=== PATIENT | female | born 1930 | race Caucasian/White ===

== ENCOUNTER → 2016-07-16 | Outpatient (REF) | payer MEDICARE, BC, OTHER ==
[~2016-07-16] MED LIST: BIMA01SOL OU; GLIP10TA6 PO; METF1000 PO; RAMI10CA PO
[2016-07-16 13:42] LABS: PERCENT SATURATION 14.8 % (13.2-37.4)
== END ==
LOC: M LAB REF 12:35
PROVIDERS: ATTEND Internal Medicine
DX: D50.9 Iron deficiency anemia, unspecified (principal)

== ENCOUNTER → 2016-11-07 | Outpatient (REF) | payer MEDICARE, BC, OTHER ==
[2016-11-07 13:44] LABS: TOTAL PROTEIN 7.1 GM/DL (6.4-8.2)
[2016-11-08 13:54] LABS: ALBUMIN 3.98 GM/DL (3.29-5.55); GAMMA GLOBULIN % 11.3 % (11.1-18.8)
== END ==
LOC: M LAB REF 13:03
PROVIDERS: ATTEND Internal Medicine
DX: D47.2 Monoclonal gammopathy (principal)

== ENCOUNTER → 2017-10-23 | Outpatient (REF) | payer MEDICARE, OTHER ==
[2017-10-23 13:40] LABS: IMMUNOGLOBULIN A 80.4 MG/DL (70-400); IMMUNOGLOBULIN G 663 MG/DL (681-1648); IMMUNOGLOBULIN M 51.7 MG/DL (40-230); TOTAL PROTEIN 6.8 GM/DL (6.4-8.2)
[2017-10-24 11:07] LABS: ALBUMIN % 56.7 % (55.8-66.1); ALPHA-1-GLOBULIN % 4.9 % (2.9-4.9); ALPHA-2-GLOBULINS % 15.2 % (7.1-11.8); BETA-1-GLOBULINS % 7.7 % (4.7-7.2)
[2017-10-24 11:08] LABS: ALBUMIN 3.86 GM/DL (3.29-5.55); ALPHA-1-GLOBULINS 0.33 GM/DL (0.17-0.41); ALPHA-2-GLOBULINS 1.03 GM/DL (0.42-0.99); BETA-1-GLOBULINS 0.52 GM/DL (0.28-0.60); BETA-2-GLOBULINS 0.34 GM/DL (0.19-0.55); GAMMA GLOBULIN % 10.5 % (11.1-18.8); GAMMA GLOBULINS 0.71 GM/DL (0.65-1.58)
== END ==
LOC: M LAB REF 12:34
DX: D47.2 Monoclonal gammopathy (principal)
CPT/HCPCS: 84165

== ENCOUNTER → 2018-03-07 | Outpatient (REF) | payer MEDICARE, OTHER ==
[2018-03-07 14:14] LABS: IRON (FE) 40 UG/DL (50-170); PERCENT SATURATION 8.7 % (13.2-45.0); TOTAL IRON BINDING CAPACITY 461 UG/DL (250-450)
== END ==
LOC: M LAB REF 13:33
DX: D50.9 Iron deficiency anemia, unspecified (principal)
CPT/HCPCS: 83550

== ENCOUNTER → 2018-07-01 | Outpatient (REF) | payer MEDICARE, OTHER ==
[~2018-07-01] MED LIST changes: +ACET30TAB PO; +ASPI81TA85 PO; +COMB0.2S OP; +DORZ2SOL5 OP; +IBUP-1022 PO; -METF1000 PO; +METF10004 PO; +PRAV40TA2 PO; -RAMI10CA PO; +RAMI1CAP26 PO; +VITA100067 PO
[2018-07-01 13:10] LABS: IMMUNOGLOBULIN G 681 MG/DL (681-1648); IMMUNOGLOBULIN M 71.4 MG/DL (40-230); TOTAL PROTEIN 6.8 GM/DL (6.4-8.2)
[2018-07-03 13:49] LABS: ALBUMIN 3.86 GM/DL (3.29-5.55); ALBUMIN % 56.7 % (55.8-66.1); ALPHA-1-GLOBULIN % 4.7 % (2.9-4.9); ALPHA-1-GLOBULINS 0.32 GM/DL (0.17-0.41); ALPHA-2-GLOBULINS 1.01 GM/DL (0.42-0.99); ALPHA-2-GLOBULINS % 14.9 % (7.1-11.8); BETA-1-GLOBULINS 0.53 GM/DL (0.28-0.60); BETA-1-GLOBULINS % 7.8 % (4.7-7.2); BETA-2-GLOBULINS 0.33 GM/DL (0.19-0.55); BETA-2-GLOBULINS % 4.9 % (3.2-6.5); GAMMA GLOBULINS 0.75 GM/DL (0.65-1.58)
[2018-07-03 14:20] LABS: IMMUNOTYPING SERUM IGG ABNORMAL (NORMAL); IMMUNOTYPING SERUM LAMBDA ABNORMAL (NORMAL)
== END ==
LOC: M LAB REF 11:56
PROVIDERS: ATTEND Internal Medicine
DX: D47.2 Monoclonal gammopathy (principal)

== ENCOUNTER → 2020-08-19 | Outpatient (REF) | payer MEDICARE, OTHER ==
[~2020-08-19] MED LIST changes: +ACET-716 PO; -ACET30TAB PO; -ASPI81TA85 PO; +ASPI81TA86 PO
[2020-08-19 12:54] LABS: IMMUNOGLOBULIN G 813 MG/DL (681-1648); IMMUNOGLOBULIN M 73.7 MG/DL (40-230); IRON (FE) 60 UG/DL (50-170); PERCENT SATURATION 14.4 % (13.2-45.0); TOTAL IRON BINDING CAPACITY 418 UG/DL (250-450)
[2020-08-22 15:44] LABS: ALBUMIN 3.93 GM/DL (3.29-5.55); ALBUMIN % 56.1 % (55.8-66.1); ALPHA-1-GLOBULIN % 4.4 % (2.9-4.9); ALPHA-1-GLOBULINS 0.31 GM/DL (0.17-0.41); ALPHA-2-GLOBULINS 1.13 GM/DL (0.42-0.99); ALPHA-2-GLOBULINS % 16.1 % (7.1-11.8); BETA-1-GLOBULINS % 7.1 % (4.7-7.2); BETA-2-GLOBULINS 0.36 GM/DL (0.19-0.55); BETA-2-GLOBULINS % 5.2 % (3.2-6.5); GAMMA GLOBULIN % 11.1 % (11.1-18.8); GAMMA GLOBULINS 0.78 GM/DL (0.65-1.58)
== END ==
LOC: M LAB REF 11:25
PROVIDERS: ATTEND Internal Medicine
DX: D50.9 Iron deficiency anemia, unspecified (principal); D47.2 Monoclonal gammopathy

== ENCOUNTER → 2021-08-23 | Outpatient (REF) | payer MEDICARE, OTHER ==
[2021-08-23 18:34] LABS: IMMUNOGLOBULIN A 81.5 MG/DL (70-400); IMMUNOGLOBULIN G 850 MG/DL (681-1648); TOTAL PROTEIN 7.2 GM/DL (6.4-8.2)
[2021-08-24 10:44] LABS: ALBUMIN % 56.9 % (55.8-66.1); ALPHA-1-GLOBULIN % 4.5 % (2.9-4.9); ALPHA-1-GLOBULINS 0.32 GM/DL (0.17-0.41); ALPHA-2-GLOBULINS 1.09 GM/DL (0.42-0.99); ALPHA-2-GLOBULINS % 15.1 % (7.1-11.8); BETA-1-GLOBULINS 0.53 GM/DL (0.28-0.60); BETA-1-GLOBULINS % 7.3 % (4.7-7.2); BETA-2-GLOBULINS 0.35 GM/DL (0.19-0.55); BETA-2-GLOBULINS % 4.8 % (3.2-6.5); GAMMA GLOBULIN % 11.4 % (11.1-18.8); GAMMA GLOBULINS 0.82 GM/DL (0.65-1.58)
[2021-08-24 10:48] LABS: IMMUNOTYPING SERUM IGG ABNORMAL (NORMAL); IMMUNOTYPING SERUM LAMBDA ABNORMAL (NORMAL)
== END ==
LOC: M LAB REF 16:19
PROVIDERS: ATTEND Internal Medicine
DX: N18.30 Chronic kidney disease, stage 3 unspecified (principal)

== ENCOUNTER → 2022-02-23 | Outpatient (REF) | payer MEDICARE, OTHER ==
[2022-02-23 13:37] LABS: IMMUNOGLOBULIN A 76.1 MG/DL (70-400); IMMUNOGLOBULIN G 821 MG/DL (681-1648); TOTAL PROTEIN 6.7 GM/DL (6.4-8.2)
[2022-02-28 12:50] LABS: ALBUMIN 3.87 GM/DL (3.29-5.55); ALBUMIN % 57.8 % (55.8-66.1); ALPHA-1-GLOBULIN % 4.5 % (2.9-4.9); ALPHA-2-GLOBULINS 1.03 GM/DL (0.42-0.99); ALPHA-2-GLOBULINS % 15.3 % (7.1-11.8); BETA-1-GLOBULINS 0.45 GM/DL (0.28-0.60); BETA-1-GLOBULINS % 6.7 % (4.7-7.2); BETA-2-GLOBULINS 0.33 GM/DL (0.19-0.55); BETA-2-GLOBULINS % 4.9 % (3.2-6.5); GAMMA GLOBULIN % 10.8 % (11.1-18.8)
[2022-02-28 12:51] LABS: GAMMA GLOBULINS 0.72 GM/DL (0.65-1.58)
[2022-02-28 13:05] LABS: IMMUNOTYPING SERUM IGG ABNORMAL (NORMAL); IMMUNOTYPING SERUM LAMBDA ABNORMAL (NORMAL)
== END ==
LOC: M LAB REF 12:00
PROVIDERS: ATTEND Internal Medicine
DX: N18.30 Chronic kidney disease, stage 3 unspecified (principal)